=== PATIENT | female | born 1950 | race Caucasian/White ===

== ENCOUNTER 2017-01-01 08:12 | Day surgery (SDC) | payer MEDICARE ==
[~2017-01-01] VITALS: Ht 170.2 cm; Wt 76.5 kg
--- NOTE | ~2017-01-01 | OR ---
ADMIT: 01/01/2017 RM/LOC: [facility] MR#: [id number] [place], [place] [id number] MINDY JONES [address] [facility] [address] [place] [address] Operative/Delivery Room Report SEX: F AGE: 66 : 1950 SURGERY DATE: 01/01/2017 SURGEON: Rl Sunshine MD POSTOPERATIVE DIAGNOSIS: Lung cancer. POSTOPERATIVE DIAGNOSIS: Lung cancer. PROCEDURE: Right internal jugular vein PowerPort insertion under ultrasound and fluoroscopic guidance. ANESTHESIA: IV general. DESCRIPTION OF PROCEDURE: The patient was taken to the operating room and placed supine on the operating room table. IV sedation was established. The right neck and chest were prepped and draped in the standard surgical fashion. Local anesthetic was used to anesthetize the skin and subcutaneous tissue of the right neck and chest wall inferior to the right clavicle. The right internal jugular vein was identified with ultrasound, cannulated under ultrasound guidance with a large gauge needle. A guidewire was advanced under fluoroscopic visualization to the superior vena cava. Next, a port pocket was created inferior to the right clavicle to allow snug positioning of the PowerPort. The catheter was secured to the port with a cuff. The port was sutured on both sides to the subcutaneous tissue with 3-0 Prolene suture. The dilator and sheath were advanced over the guidewire under fluoroscopy. The guidewire and dilator were withdrawn. The catheter was deployed via the sheath, and the sheath was removed. The fluoroscopy showed appropriate position of the catheter with the tip at the atriocaval junction, and no evidence of kink. The port was accessed with the Lee needle, aspirated easily, and flushed with heparinized saline. The deep tissue at the port pocket was approximated with 3-0 Vicryl suture. Skin edges were approximated with 4-0 Monocryl in a subcuticular fashion and Dermabond. Sponge, needle, and instrument counts were correct at the end of the case. The patient tolerated the procedure well and transferred to the recovery area in stable condition. Rl Sunshine MD/ shola JOB #: [id number] CC: Rl Sunshine, Attending Physician FAMILY PHYSICIAN, Family Physician
== END 2017-01-01 13:30 | disposition home or self-care (01) ==
LOC: SSS 08:12
PROC: 05HM33Z Insertion of Infusion Device into Right Internal Jugular Vein, Percutaneous Approach (ICD-10-PCS; principal; 2017-01-01)
PROC: B543ZZA Ultrasonography of Right Jugular Veins, Guidance (ICD-10-PCS; principal; 2017-01-01)
PROC: B513YZA Fluoroscopy of Right Jugular Veins using Other Contrast, Guidance (ICD-10-PCS; principal; 2017-01-01)
PROC: 0JHD3XZ Insertion of Tunneled Vascular Access Device into Right Upper Arm Subcutaneous Tissue and Fascia, Percutaneous Approach (ICD-10-PCS; principal; 2017-01-01)
DX: C34.90 Malignant neoplasm of unspecified part of unspecified bronchus or lung (principal); I25.10 Atherosclerotic heart disease of native coronary artery without angina pectoris; I10 Essential (primary) hypertension; F17.210 Nicotine dependence, cigarettes, uncomplicated; J45.909 Unspecified asthma, uncomplicated; Z86.73 Personal history of transient ischemic attack (TIA), and cerebral infarction without residual deficits; Z90.49 Acquired absence of other specified parts of digestive tract; Z90.710 Acquired absence of both cervix and uterus; Z98.51 Tubal ligation status; Z98.890 Other specified postprocedural states; Z88.0 Allergy status to penicillin; Z88.6 Allergy status to analgesic agent